=== PATIENT | male | born 1970 | race Caucasian/White ===

== ENCOUNTER 2022-11-07 10:10 | Emergency (ER) | payer OTHER ==
[~2022-11-07] VITALS: Ht 157.5 cm; Wt 86.2 kg
[2022-11-07 10:14] VITALS: BP_SYST 119
[2022-11-07] MEDS ORDERED: EPINEPHRINE HCL/PF 1 MG/ML AMP ONE (10:42)
[2022-11-07] MEDS ORDERED: methylPREDNISolone SOD SUCC/PF 62.5 MG/ML VIAL IVP ONE (10:45)
[2022-11-07] MEDS ORDERED: FAMOTIDINE PF 20 MG/2 ML VIAL IVP ONE (10:45)
[2022-11-07] MEDS ORDERED: EPINEPHrine HCL 1 MG/ML VIAL SUBCUT ONE (10:45)
[2022-11-07] MEDS ORDERED: NACL 0.9% 1,000 ML IV ONE (10:45)
[2022-11-07 14:00] VITALS: BP_SYST 128
[2022-11-07] MEDS ORDERED: LORA10TA7 PO (14:15)
[2022-11-07] MEDS ORDERED: FAMO-132 PO (14:15)
[2022-11-07] MEDS ORDERED: PRED20TA PO (14:15)
[2022-11-07] MEDS ORDERED: EPIN0.3P3 IM (14:15)
== END 2022-11-07 14:34 | disposition home or self-care (01) ==
LOC: SED 10:10 → EDBD 10:10 → SED 14:34
DX: T63.441A Toxic effect of venom of bees, accidental (unintentional), initial encounter (principal); R06.02 Shortness of breath; R42 Dizziness and giddiness; E78.00 Pure hypercholesterolemia, unspecified; Z79.899 Other long term (current) drug therapy
CPT/HCPCS: 99291; 96374; 96361; 96375; 96372; J0171; J3490; J2930; J7030